=== PATIENT | female | born 1985 | race African-American/Black ===

== ENCOUNTER 2016-02-04 16:19 | Inpatient (IN) | payer OTHER ==
[~2016-02-04] VITALS: Ht 165.1 cm; Wt 87.7 kg
[~2016-02-04 16:19] MED LIST: NORCO 325 MG-51 TAB PO; PROMETRIUM100 MG PO
[2016-02-19 19:39] VITALS: BP 113/67; PULSE 91; TEMP 98.2
[2016-02-19] MEDS ORDERED: PRENATAL (19:49)
[2016-02-19] MEDS ORDERED: BENADRYL25 M2 PO (19:50)
[2016-02-19] MEDS ORDERED: NATURAL IRON65 MG PO (19:50)
[2016-02-19 20:15] VITALS: BP 126/75; PULSE 107; TEMP 98.2
[2016-02-19 20:20] LABS: BASO % 0.4 % (0.0-2.0); EOS # 0.1 (0.0-0.7); EOS % 1.9 % (0-4.0); GRAN % 58.3 % (42.2-75.2); HEMATOCRIT 33.8 % (37.0-47.0); HEMOGLOBIN 10.7 g/dl (12.5-16.0); LYMPH # 1.6 (1.2-3.4); LYMPH % 23.8 % (20.0-51.0); MEAN CELL VOLUME 71 fl (80.0-100.0); MEAN CORPUSCULAR HEMOGLOBIN 22 pg (27.0-31.0); MEAN CORPUSCULAR HGB CONC 32 g/dl (33.0-37.0); MONO % 15.2 % (1.7-9.3); PLATELET COUNT 165 K/mm3 (130-400); RED BLOOD COUNT 4.78 M/mm3 (4.10-5.30); REDCELL DISTRIBUTION WIDTH-CV 16.8 % (11.5-14.5); WHITE BLOOD COUNT 6.8 K/mm3 (4.8-10.8)
[2016-02-19 21:15] VITALS: BP 116/58; PULSE 93
[2016-02-19 22:15] VITALS: BP 124/66; PULSE 97
[2016-02-19 22:30] VITALS: BP 120/67; PULSE 101
[2016-02-19 23:30] VITALS: BP 130/64; PULSE 95
[2016-02-20] VITALS (32 sets, daily range): BP systolic 107–138; BP diastolic 56–76; PULSE 78–114; TEMP 97.9–98.4
[2016-02-20 13:37] LABS: BASO % 0.2 % (0.0-2.0); EOS % 0.1 % (0-4.0); GRAN # 7.7 (1.4-6.5); GRAN % 78.9 % (42.2-75.2); LYMPH # 1.1 (1.2-3.4); LYMPH % 11.7 % (20.0-51.0); MEAN CELL VOLUME 72 fl (80.0-100.0); MEAN CORPUSCULAR HGB CONC 32 g/dl (33.0-37.0); MONO # 0.9 (0.1-0.6); MONO % 8.7 % (1.7-9.3); PLATELET COUNT 142 K/mm3 (130-400); RED BLOOD COUNT 4.38 M/mm3 (4.10-5.30); REDCELL DISTRIBUTION WIDTH-CV 16.8 % (11.5-14.5); WHITE BLOOD COUNT 9.8 K/mm3 (4.8-10.8)
[2016-02-20 13:38] LABS: HEMATOCRIT 31.3 % (37.0-47.0); HEMOGLOBIN 9.9 g/dl (12.5-16.0); MEAN CORPUSCULAR HEMOGLOBIN 23 pg (27.0-31.0)
[2016-02-20] MEDS ORDERED: IBU600 MG PO (14:53)
[2016-02-20] MEDS ORDERED: PERCOCET 325 MG1 TA2 PO (14:53)
[2016-02-21] VITALS: BP 120/70; PULSE 102; TEMP 97.1
[2016-02-21 04:00] VITALS: BP 118/76; PULSE 100; TEMP 98
[2016-02-21 06:35] VITALS: BP 113/66; PULSE 103; TEMP 97.5
[2016-02-21 08:48] LABS: BASO % 0.2 % (0.0-2.0); EOS # 0.1 (0.0-0.7); EOS % 0.8 % (0-4.0); GRAN # 10.8 (1.4-6.5); GRAN % 79.3 % (42.2-75.2); LYMPH # 1.3 (1.2-3.4); LYMPH % 9.5 % (20.0-51.0); MEAN CELL VOLUME 72 fl (80.0-100.0); MEAN CORPUSCULAR HGB CONC 31 g/dl (33.0-37.0); MONO # 1.3 (0.1-0.6); MONO % 9.7 % (1.7-9.3); PLATELET COUNT 137 K/mm3 (130-400); RED BLOOD COUNT 4.06 M/mm3 (4.10-5.30); WHITE BLOOD COUNT 13.6 K/mm3 (4.8-10.8)
[2016-02-21 08:49] LABS: HEMATOCRIT 29.3 % (37.0-47.0); HEMOGLOBIN 9.1 g/dl (12.5-16.0); MEAN CORPUSCULAR HEMOGLOBIN 22 pg (27.0-31.0)
[2016-02-21 16:54] VITALS: BP 116/58; PULSE 112; TEMP 98.1
[2016-02-21 17:08] VITALS: PULSE 100
[2016-02-21 21:30] VITALS: BP 133/75; PULSE 115; TEMP 98.4
[2016-02-22 08:45] VITALS: BP 119/73; PULSE 96; TEMP 98.1
[2016-02-22 16:00] VITALS: BP 121/64; PULSE 104; TEMP 98
[2016-02-22 20:15] VITALS: BP 129/59; PULSE 118; TEMP 97.8
[2016-02-23 08:00] VITALS: BP 120/74; PULSE 102; TEMP 98.3
== END 2016-02-23 17:30 | disposition home or self-care (01) | DRG 766 ==
LOC: EDSTATUS 02-08 08:47 → LDRO 02-08 14:58 → LDR 02-19 08:48 → OB 02-19 18:59
PROVIDERS: Obstetrics & Gynecology
PROC: 10D00Z1 Extraction of Products of Conception, Low, Open Approach (ICD-10-PCS; principal; 2016-02-20)
PROC: 0UN40ZZ Release Uterine Supporting Structure, Open Approach (ICD-10-PCS; 2016-02-20)
PROC: 3E033VJ Introduction of Other Hormone into Peripheral Vein, Percutaneous Approach (ICD-10-PCS; 2016-02-20)
DX: O48.0 Post-term pregnancy (principal); O76 Abnormality in fetal heart rate and rhythm complicating labor and delivery; O77.0 Labor and delivery complicated by meconium in amniotic fluid; O34.13 Maternal care for benign tumor of corpus uteri, third trimester; D25.9 Leiomyoma of uterus, unspecified; O99.89 Other specified diseases and conditions complicating pregnancy, childbirth and the puerperium; N73.6 Female pelvic peritoneal adhesions (postinfective); Z3A.41 41 weeks gestation of pregnancy; Z37.0 Single live birth
CPT/HCPCS: J0690; J1885; J2270; J2370; J2405; J2590; J7120